=== PATIENT | female | born 1975 ===

== ENCOUNTER 2018-07-20 05:21 | Inpatient (IN) | payer OTHER ==
[2018-07-20] VITALS (7 sets, daily range): BP systolic 109–156; BP diastolic 76–96
[~2018-07-20] VITALS: Ht 152.4 cm; Wt 46.3 kg
[~2018-07-20 05:21] MED LIST: NKM
[2018-07-20] MEDS ORDERED: Zemuron 50mg/5ml Inj IV ONE (06:10)
[2018-07-20] MEDS ORDERED: LR 1000ml 1,000 ML IVLG SCH (06:18)
--- NOTE | 2018-07-20 06:19 | Anethesia Preoperative Eval ---
Anesthesia Pre-op PMH/ROS General Date of Evaluation: Jul 20, 2018 Time of Evaluation: 07:06 Anesthesiologist: Odilia ASA Score: ASA 1 Mallampati Score Class I : Soft palate, uvula, fauces, pillars visible Class II: Soft palate, uvula, fauces visible Class III: Soft palate, base of uvula visible Class IV: Only hard plate visible Mallampati Classification: Class I Surgeon: Terrence Diagnosis: Neck Pain Surgical Procedure: ACDF C4-5, C5-6 Anesthesia History: none Family History: no anesthesia problems Allergies: Coded Allergies: HYDROCODONE (Verified Allergy, Unknown, 07/20/18) severe vomiting, tolerated other narcotics. Medications: see eMAR Past Medical History Neurologic/Psychiatric: Reports: depression/anxiety PSxH Narrative: FERNANDA Anesthesia Pre-op Phys. Exam Physician Exam Last Vital Signs Date Time Temp Pulse Resp B/P (MAP) Pulse Ox O2 Delivery O2 Flow Rate FiO2 07/20/18 06:10 98.0 68 18 109/76 (87) 100 98.0 Constitutional: NAD Neurologic: CN 2-12 intact Cardiovascular: RRR Respiratory: CTA Gastrointestinal: S/NT/ND Airway Exam Mallampati Score: Class I MO: full ROM: limited Teeth: intact Anesthesia Pre-op A/P Labs Urine Test Test 07/20/18 05:30 Urine HCG, Qualitative Pending Risk Assessment & Plan Assessment: ASA 1 Plan: GA, BIS, GlideScope Status Change Before Surgery: No Pre-Antibiotics Dru Gram Ancef IV Given Within 1 Hr of Incision: Yes Time Given: 07:31 Obed Hartley MD Jul 20, 2018 06:19
[2018-07-20] MEDS ORDERED: Ketorolac 30mg Inj IV PRN ×2 (06:30)
[2018-07-20] MEDS ORDERED: Midazolam 2mg/2ml Inj IVP PRN (06:30)
[2018-07-20] MEDS ORDERED: Hydromorphone 0.5mg/0.5ml inj IVP PRN (06:30)
[2018-07-20] MEDS ORDERED: Labetalol 5mg/ml 20ml vial IV PRN (06:30)
[2018-07-20] MEDS ORDERED: LORazepam Inj 2mg/ml 1ml IV PRN (06:30)
[2018-07-20] MEDS ORDERED: Norco 5mg/325mg tab ORAL PRN (06:30)
[2018-07-20] MEDS ORDERED: HYDROcodone/Acetamin 7.5/325 tab ORAL PRN (06:30)
[2018-07-20] MEDS ORDERED: fentaNYL 100 mcg/2 mL IV PRN (06:30)
[2018-07-20] MEDS ORDERED: DiphenhydrAMINE 50mg/ml Inj IVP PRN (06:30)
[2018-07-20] MEDS ORDERED: Acetaminophen (Non formulary) 100 ML IV ONE (06:30)
[2018-07-20] MEDS ORDERED: oxyCODONE HCL/Acetaminophen 5/325mg ORAL PRN (06:30)
[2018-07-20] MEDS ORDERED: Atropine Inj 1mg/10ml Syr IV PRN (06:30)
[2018-07-20] MEDS ORDERED: Metoclopramide 10mg/2ml Inj IVP PRN (06:30)
[2018-07-20] MEDS ORDERED: Lidocaine 1% Plain 30 ml INJ ONE ×3 (06:34→09:17)
[2018-07-20] MEDS ORDERED: Lidocaine 1% MPF 10mg/ml 5ml ONE (06:42)
[2018-07-20] MEDS ORDERED: Sodium Chloride 10ml vial INJ ONE (06:42)
[2018-07-20] MEDS ORDERED: HYDROmorphone 1mg/ml Carpuject SUBQ PRN ×2 (06:45→07:00)
[2018-07-20] MEDS ORDERED: LORazepam 0.5mg tab ORAL PRN (06:45)
[2018-07-20] MEDS ORDERED: TransDerm Scop 1mg/72HR Patch TDERMAL SCH (06:45)
[2018-07-20] MEDS ORDERED: oxyCODONE 5mg IR tab ORAL PRN ×2 (06:45)
[2018-07-20] MEDS ORDERED: fentaNYL 100 mcg/2 mL IV ONE ×2 (06:48→08:25)
[2018-07-20] MEDS ORDERED: Propofol 1,000mg/ 100ml btl IV ONE ×2 (07:00)
[2018-07-20] MEDS ORDERED: LR 1000ml ONE (07:00)
[2018-07-20] MEDS ORDERED: ceFAZolin sod 1 GM in NS 55 ML IVPB ONE (07:00)
[2018-07-20] MEDS ORDERED: NS Irrig 1000ml ONE (07:00)
[2018-07-20] MEDS ORDERED: Sterile Water For Irrig 2000ml IRRIG ONE (07:00)
[2018-07-20] MEDS ORDERED: TransDerm Scop 1mg/72HR Patch TDERMAL PRN (07:00)
[2018-07-20] MEDS ORDERED: Dexamethasone 20mg/5ml IVP ONE (07:00)
--- NOTE | 2018-07-20 07:14 | Pre-Procedure Note/Attestation ---
Pre-Procedure Note/Attestation Complete Prior to Procedure Planned Procedure: not applicable Procedure Narrative: ACDF C4-5 C5-6 Indications for Procedure Pre-Operative Diagnosis: Post trauma cervical deformity pain radiculopathy Attestation I attest that I discussed the nature of the procedure; its benefits; risks and complications; and alternatives (and the risks and benefits of such alternatives ), prior to the procedure, with the patient (or the patient's legal client care representative). I attest that, if there was a reasonable possibility of needing a blood transfusion, the patient (or the patient's legal client care representative) was given the [facility] standardized written summary, pursuant to the [place] Blood Safety Act ([place] Health and Safety Code # 1645, as amended). I attest that I re-evaluated the patient just prior to the surgery and that there has been no change in the patient's H&P, except as documented below: MIRNA BEARDEN Jul 20, 2018 07:14
[2018-07-20] MEDS ORDERED: Thrombin 5000 units TOPIC ONE (07:15)
[2018-07-20] MEDS ORDERED: Gelfoam Size TOPIC ONE (07:15)
[2018-07-20] MEDS ORDERED: Bacitracin 50000 Units Vial ONE (07:15)
--- NOTE | 2018-07-20 07:18 | Immediate Post-Op Evaluation ---
Immediate Post-Op Evalulation Immediate Post-Op Evalulation Procedure: ACDF C4-5,C5-6 Date of Evaluation: Jul 20, 2018 Time of Evaluation: 10:29 IV Fluids: 1000 LR Blood Products: 0 Estimated Blood Loss: 25 Urinary Output: 0 Blood Pressure Systolic: 142 Blood Pressure Diastolic: 96 Pulse Rate: 74 Respiratory Rate: 16 O2 Sat by Pulse Oximetry: 100 Temperature (Fahrenheit): 97.6 Pain Score (1-10): 2 Nausea: No Vomiting: No Complications 0 Patient Status: awake, reacts, patent, extubated, none Hydration Status: adequate Dru Grams Ancef IV Given Within 1 Hr of Incision: Yes Time Given: 07:31 Obed Hartley MD Jul 20, 2018 07:18
--- NOTE | 2018-07-20 07:19 | 48 Hour Post Anesthesia Eval ---
Post Anesthesia Evaluation Procedure: ACDF C4-5,C5-6 Date of Evaluation: Jul 20, 2018 Time of Evaluation: 12:43 Blood Pressure Systolic: 122 0: 87 Pulse Rate: 72 Respiratory Rate: 18 Temperature (Fahrenheit): 97.6 O2 Sat by Pulse Oximetry: 100 Airway: patent Nausea: No Vomiting: No Pain Intensity: 2 Hydration Status: adequate Cardiopulmonary Status: Stable Mental Status/LOC: patient returned to baseline Follow-up Care/Observations: 0 Post-Anesthesia Complications: 0 Follow-up care needed: N/A Obed Hartley MD Jul 20, 2018 07:19
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
[2018-07-20] MEDS ORDERED: Neostigmine 1mg/ml 10ml Inj ONE (09:45)
[2018-07-20] MEDS ORDERED: Glycopyrrolate 0.2mg/ml 1ml Vial ONE (09:45)
[2018-07-20] MEDS ORDERED: Naloxone 0.4mg/ml Inj ONE (10:02)
--- NOTE | 2018-07-20 10:18 | Brief Operative Note ---
Immediate Post Operative Note Operative Note Pre-op Diagnosis: Post trauma cervical deformity pain radiculopathy Procedure: ACDF C4-5 C5-6 Correction deformity SSEP xray Bioactive material Anterior internal plate fixation Post-op Diagnosis: same as pre-op Findings: consistent w/pre-op dx studies Surgeon: Terrence ANAND Front End Developer Javascript Html Css: Bi SAUCEDO Anesthesiologist: Odilia ANAND Anesthesia: general Specimen: yes Complications: none Condition: stable Fluids: anesthesia Estimated Blood Loss: minimal Drains: none Implant(s) used?: Yes MIRNA BEARDEN Jul 20, 2018 10:18
[2018-07-20] MEDS ORDERED: Chloraseptic Spray 20mL Bottle ORAL ONE (10:30)
[2018-07-20] MEDS ORDERED: Chloraseptic Spray 20mL Bottle ORAL PRN (10:30)
--- NOTE | 2018-07-20 11:35 | Diagnostic Imaging Report ---
Indication: Left upper extremity pain, intraoperative Technique: 2 intraoperative images the cervical spine Comparison: none Findings: Initial lateral image demonstrates surgical tool projected at the level of the C4-5 disc. Subsequent images document placement of anterior fusion hardware and disc spacers at C4, C5, and C6 Impression: Intraoperative imaging, as described
[2018-07-20] MEDS ORDERED: D5 1/2NS 1,000 ML IV SCH (13:54)
[2018-07-20] MEDS ORDERED: ceFAZolin sod 1 GM in D5W 55 ML IV SCH (16:00)
--- NOTE | 2018-07-20 22:15 | Operative Note - Dictated ---
DATE OF OPERATION: 07/20/2018 SURGEON: Delvin Ocampo M.D. DRIER TAKE OFF TENDER: LEWIS Woodson. ANESTHESIOLOGIST: Dr. Hartley. ANESTHESIA: General with intubation. 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 OPERATIVE PROCEDURE: 1. Anterior cervical diskectomy with fusion, C4-C5, C5-C6. 2. Anterior internal fixation C4, C5, C6. 3. Interbody lordotic cage placement titanium containing autograft with osteopromotive material C4-C5 and C5-C6. 4. Intraoperative fluoroscopy interpreted by surgeon. 5. High-powered magnification dissection. 6. SSEP monitoring. ESTIMATED BLOOD LOSS: Minimal. COMPLICATIONS: None. POSTOP CONDITION: Good/stable. SPECIMEN: Disk fragments to pathology. DESCRIPTION OF PROCEDURE: The patient was brought to the operating room and in the supine position general anesthesia intubation was induced. IV antibiotics, IV Decadron were administered 30 minutes prior to incision time. After appropriate position in the supine position, a marker was placed on the lateral aspect of the neck without penetration of the skin. A spinal needle was placed from the right lateral aspect of the neck-contralateral to the intended incision position. Needle did not penetrate the skin at any time. Cross-table image was obtained and interpreted by surgeon for decision level for incision placement. Marker was utilized for marking the contralateral aspect of the anterior/anterolateral cervical spine with sterile marking pen at the appropriate interval. Marker on the contralateral aspect of the neck was removed. Anterior cervical spine was sterilely prepped and draped free in usual sterile fashion. Transverse incision was placed sharply through dermis and epidermis at the appropriate interval. Electrocautery dissection was carried through the subcutaneous tissue to the level of the platysmas muscle. It was identified, isolated and transected by the incision. Blunt dissection was carried through the deep cervical and the pretracheal fascia medial to the left sternocleidomastoid muscle through the midline between the right and left longus colli muscles. A spinal needle was bent at 90 degrees angle so as to avoid penetration greater than 3 mm. It was placed in the disk space under direct high-power magnification observation. Cross-table image was obtained under sterile conditions demonstrating the correct level for the dissection. Level was marked. Needle removed. Subperiosteal dissection of longus colli muscles over the involved intervals not exceeding 2 mm in medial to lateral extent. Retractors placed. Confirmation was undertaken of the appropriate level with needle replaced into disk space and a cross-table image obtained and interpreted by surgeon. C4-C5: Large anterior osteophyte was resected. Diskectomy was performed to but not through the posterior longitudinal ligament. Endplates were denuded of cartilaginous end caps. Posterior longitudinal ligament was resected with decompression of spinal cord and foramen without dural tears or leaks anytime. SSEP monitoring stable. Interpositional grafting with a lordotic graft to the appropriate dimensions was undertaken with a combination of fluoroscopic imaging/guidance and under high-power magnification observation. Fit was excellent. Attention was turned to the C5-C6 interval. Anterior osteophytes were resected with [place] bur dissection under high-power magnification. Diskectomy to but not through the posterior longitudinal ligament. Cartilaginous end plates were denuded to subchondral bone. Posterior longitudinal ligament resected. Decompression spinal cord/training. No dural tears or leaks at anytime during the procedure. Interpositional grafting with a lordotic titanium graft to the appropriate dimensions as previously determined with trial utilization and fluoroscopic guidance. SSEP monitoring stable. The titanium grafts contained local autograft in combination with osteopromotive material. All traction on the neck (10 pounds) was removed and the anterior plate of the appropriate dimensions placed bilateral, cortical cancellous screws into C4, C5, C6 in a compressive fashion. Purchase excellent. Final imaging obtained and recorded. Graft position and interbody device position excellent. Wound was irrigated with antibiotic-containing saline followed by application of FloSeal. Exploration revealed no obvious excoriation or laceration of vital structures. Sequential reapproximation was undertaken of the platysmas muscle and subcutaneous tissue, dermis/epidermis. Transfer surgical strips applied overlying the incision followed with application of sterile bandage, it was maintained in place with tape. The patient carefully awakened, extubated in the operating room, and transported to postop recovery in good stable condition. Delvin Ocampo M.D. DR: Jan JOB#: [id number] CC:
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
== END 2018-07-20 16:00 | disposition home or self-care (01) | DRG 473 ==
LOC: SUR 05:21 → 3E 13:46
DX: M50.121 Cervical disc disorder at C4-C5 level with radiculopathy (principal); V89.2XXS Person injured in unspecified motor-vehicle accident, traffic, sequela; G89.18 Other acute postprocedural pain; R11.2 Nausea with vomiting, unspecified; Z90.710 Acquired absence of both cervix and uterus; M40.202 Unspecified kyphosis, cervical region
CPT/HCPCS: 36415; 72040; 76001; 81025; 86850; 86900; 86901; 87081; J2405; J2710